=== PATIENT | male | born 1940 | race Caucasian/White ===

== ENCOUNTER → 2021-08-18 | Outpatient (CLI) | payer MEDICARE, SELFPAY ==
[~2021-08-18] MED LIST: AVAPRO150 MG PO; GLUCOPHAGE1000 MG PO; GLUCOTROL XL 5 M5 MG PO; IFEREX 150150 MG PO; ZOCOR80 MG PO
[2021-08-18 10:58] LABS: HEMOGLOBIN 12.5 gm/dl (14.0-17.5); RED BLOOD COUNT 3.81 M/UL (4.20-5.50); WHITE BLOOD COUNT 8.1 K/UL (4.5-11.0)
== END ==
LOC: LAB 10:37
PROVIDERS: Physician Assistant
DX: M79.606 Pain in leg, unspecified (principal)
CPT/HCPCS: 36415; 80048; 85025; 85379

== ENCOUNTER → 2021-08-19 | Outpatient (CLI) | payer MEDICARE, SELFPAY | LOC: KOH-I 09:38 | DX: R79.89 Other specified abnormal findings of blood chemistry (principal); R25.2 Cramp and spasm; M79.662 Pain in left lower leg | CPT/HCPCS: 93971 ==